=== PATIENT | male | born 1965 | race Caucasian/White ===

== ENCOUNTER → 2022-07-29 | Outpatient (CLI) | payer MEDICAID ==
--- NOTE | 2022-07-29 10:54 | XR ---
EXAMINATION TYPE: XR knee complete bilateral DATE OF EXAM: 07/29/2022 COMPARISON: None HISTORY: Pain TECHNIQUE: Bilateral knees 3 views each FINDINGS: Left knee: There is narrowing of the medial compartment joint space. There is some calcification with in the meniscus of the lateral compartment. Medial and lateral femoral condylar spurring and medial a nd lateral tibial plateau spurring is present. Posterior patellar spurring is present superiorly and inferiorly. Small joint effusion is not excluded. Right knee: Marked patellofemoral spurring is present. Small joint effusion is present. Medial and la teral tibial plateau and femoral condylar spurring is present. There is narrowing of medial compartme nt. Milder narrowing of the lateral compartment is present. IMPRESSION: 1. Moderate degenerative changes bilateral knees greater in the patellofemoral femoral space on the right and within the bilateral medial compartments.
== END | disposition home or self-care (01) ==
LOC: RADXRYALE 10:15
PROVIDERS: ATTEND Family Medicine
DX: M17.0 Bilateral primary osteoarthritis of knee (principal)

== ENCOUNTER → 2023-08-06 | Outpatient (CLI) | payer MEDICAID ==
--- NOTE | 2023-08-06 09:23 | XR ---
EXAMINATION TYPE: XR cervical spine comp DATE OF EXAM: 08/06/2023 COMPARISON: None HISTORY: Cervicalgia TECHNIQUE: 5 views cervical spine FINDINGS: Foraminal narrowing is present on the right C4-5. Milder foraminal narrowing is present C4- 5 and C5-6 on the left. Prevertebral space is normal. Posterior spinal lamellar line appears intact. There is degenerative di sc change throughout the cervical spine greatest at C5-6. IMPRESSION: 1. Degenerative disc changes and foraminal narrowing C4-5 foraminal narrowing on the left C5-6 disc space narrowing.
== END | disposition home or self-care (01) ==
LOC: RADXRYALE 08:33
PROVIDERS: ATTEND Family Medicine
DX: M47.812 Spondylosis without myelopathy or radiculopathy, cervical region (principal); M54.2 Cervicalgia; M43.6 Torticollis
CPT/HCPCS: 72050

== ENCOUNTER → 2024-02-20 | Outpatient (CLI) | payer MEDICAID ==
--- NOTE | 2024-02-20 08:29 | MR ---
EXAMINATION TYPE: MR cervical spine wo con DATE OF EXAM: 02/20/2024 COMPARISON: None HISTORY: Neck pain, swelling, stiffness x1 year TECHNIQUE: Multiplanar, multisequence images of the cervical spine were acquired without contrast. Findings: The craniovertebral junction relationships and prevertebral soft tissues are normal. The cervical vertebral segments are normal in height and alignment and there is no fracture or sublux ation. There is mild decreased signal intensity, circumferential disc bulge at the C3-4, C4-5, C5-6 and C6-7 levels. There is also mild disc space narrowing at the C4-5 and C5-6 levels. No cervical disc protru reynold or herniation. There is no cervical stenosis in the cervical cord is normal in size and signal intensity. There is multilevel bilateral neural foraminal encroachment as follows; mild at C3-C4 bilaterally, se dionte at C4-5 bilaterally, severe at C5-6 on the left and moderate at C5-6 on the right. IMPRESSION: 1. d to moderate multilevel degenerative disc disease from C2 through C7 without cervical disc hernia tion. 2. No cervical stenosis in the cervical cord is normal in size and signal intensity. 3. Multilevel bilateral neural foraminal stenosis severe at multiple levels as described above.
== END | disposition home or self-care (01) ==
LOC: RADMRIMAIN 07:37
PROVIDERS: ATTEND Family Medicine
DX: M50.30 Other cervical disc degeneration, unspecified cervical region (principal); M99.73 Connective tissue and disc stenosis of intervertebral foramina of lumbar region
CPT/HCPCS: 72141

== ENCOUNTER → 2024-05-02 | Outpatient (CLI) | payer MEDICAID | LOC: PNWHC3 07:50 | PROVIDERS: ATTEND Specialist | DX: M50.321 Other cervical disc degeneration at C4-C5 level (principal); M50.322 Other cervical disc degeneration at C5-C6 level; M50.323 Other cervical disc degeneration at C6-C7 level; M47.812 Spondylosis without myelopathy or radiculopathy, cervical region | CPT/HCPCS: 99211 ==

== ENCOUNTER → 2024-05-19 | Day surgery (SDC) | payer MEDICAID ==
[~2024-05-19] MED LIST: MIDAZOLAM 2 MG/2 ML VIAL ONE; ROPIVACAINE 5MG/ML 20ML VIAL ONE; fentaNYL (PF) 50 MCG/ML 2 ML AMP ONE
[2024-05-19 06:40] VITALS: TEMP 97.8
[2024-05-19] MEDS: IV FLUID CONTINUATION 1,000 ML IV ONE ×2 (06:46→08:07)
[2024-05-19] MEDS: LACTATED RINGERS 1,000 ML IV SCH (06:46)
[2024-05-19] MEDS: LIDOCAINE 1% (10MG/ML) FOR IV START INTRADERMA PRN (06:47)
--- NOTE | 2024-05-19 08:02 | P.PCN ---
Date of Procedure: 05/19/24 Procedure(s) Performed: PREOPERATIVE DIAGNOSIS: 1-Cervical Spondylosis with Facet Arthropathy.without myelopathy. 2-cervical degenerative disc disease POSTOPERATIVE DIAGNOSIS:1-cervical spondylosis with facet arthropathy without myelopathy. 2-cervical degenerative disc disease PROCEDURES: Diagnostic bilateral C4 , C5 , C6 medial branch blocks, with fluoroscopic guidance (fluoroscopy images available in radiology department ) ( to target the facet joint at bilateral C4- 5 , C5- 6 )#1st ANESTHESIA: moderate sedation with Versed 4 mg , and fentanyl 200 micrograms (sedation started at 07:08,ended at 07:56 ) EBL: Minimal PROCEDURE INDICATION: The patient with neck pain secondary to cervical arthropathy unresponsive to more conservative treatments. PROCEDURE DESCRIPTION / TECHNIQUE: The patient was seen and identified in the preoperative area. Risks, benefits, complications, and alternatives were discussed with the patient, the patient agreed to proceed with the procedure and signed the consent. IV was started. Vital signs remained stable throughout the procedure. Patient was taken to the OR and time out was completed. The patient was placed in the prone position on the procedure table. A pillow was placed under the patients chest to increase the cervical interlaminar space. The cervical area was prepped and draped in the usual sterile fashion. Critical pause was taken. Vital signs were closely monitored during the procedure. Conscious sedation was used during the procedure to decrease patients anxiety. Using cross-table lateral fluoroscopy, the centroid of the trapezoid of right C4 , C5 and C6, was identified, marked, and localized with 1% lidocaine 1 ml at each level for skin and Sub Q infiltrations . Subsequently, a 22 G 3 spinal needle was advanced guided by fluoroscopy to the centroid of the trapezoid of Right C4 , C5, C6 . Sixes tip position was confirmed at the centroid of the trapezoids of Right C4 , C5 ,C6 with anteroposterior fluoroscopy. Subsequently, 2 ml of preservative-free Ropivacaine 0.5% and half ml of the was injected after negative aspiration for blood and CSF. Sixes was then removed intact the same procedure was repeated at the Left C4 , C5 , and C6 levels. COMPLICATIONS: No acute complications. COMMENT(the left side was done in lateral position, because when we tried to do the left side block, she was very tense and I was not able to visualize C6 vertebra , or this reason patient turned to the lateral position ( left side up ) and the procedure done in lateral position under sterile technique. DISPOSITION / PLANS: The patient was placed in a supine position and transferred to the recovery area in a stable condition for observation and was discharged from the recovery room after meeting discharge criteria. Home discharge instructions given to the patient by the staff. The patient was reexamined prior to discharge. The patient will schedule a follow up in the clinic in 2-4 weeks.
[2024-05-19 08:10] VITALS: RESP 14
--- NOTE | 2024-05-19 08:24 | FL ---
EXAMINATION TYPE: FL guided pain mgmt statistic Intraoperative/procedural fluoroscopic services were provided. Total fluoroscopy time is 40.5 seconds with a total of 4 submitted images to PACS. Please s ee the operative/procedural note for further details. DAP: [id number] mGym2
[2024-05-19 08:30] VITALS: BP 120/84; PULSE 59
== END ==
LOC: ORPAIN 05:54
PROVIDERS: ATTEND Specialist
DX: M47.812 Spondylosis without myelopathy or radiculopathy, cervical region (principal); M50.122 Cervical disc disorder at C5-C6 level with radiculopathy; Z88.8 Allergy status to other drugs, medicaments and biological substances
CPT/HCPCS: 99152; 99153

== ENCOUNTER → 2024-06-06 | Outpatient (CLI) | payer MEDICAID ==
[2024-06-06 09:26] VITALS: BP 117/74; PULSE 63; RESP 16
--- NOTE | 2024-06-06 15:09 | P.PAINPG ---
PQRS Measure Charge Sheet Comment: A 59 yr old male with a history of severe and chronic neck pain secondary to cervical radiculopathy, spondylosis with facet arthropathy without myelopathy presents today for BL MBB C4-C5/ C5-C6 #1. Pt states he experienced 0 % pain relief s/p procedure. Pain level is provoked at 10/10 in intensity, constant, predominantly axial, localized in the cervical spine, sharp in character w occasional shooting towards the R side of neck. Pain is provoked by hyperextension. Pain is alleviated with physician guided stretches daily since Feb 2024, medications, repositioning and rest. Interventional pain procedures completed include BL MBB C4-C6 x1 Patient is currently on Flexeril, Mobic, ASA Patient denies any side effects of the medication(s), denies excessive drowsiness or sleepiness, denies suicidal ideation and reports that the current pain medication is helping to control the pain and improve activities of daily living. Patient denies any motor or sensory deficits. Patient denies any fever or night sweats, denies any change in the bowel movements or urination. Physical Examination: -Constitutional: Cooperative. Not in acute distress . - Neurologic: Cranial nerve II to XII intact. No focal neurological deficits. - Psychatric: Alert & oriented x 3. Matching mood & appropriate affect. Judgment and insight intact. - Musculoskeletal: Cervical spine: Muscle bulk/ tone/ strength in the bilateral upper extremities normal Vertebral body tenderness to palpation over Spurling test positive Distraction test positive Facet loading test positive TTP BL C4-C5, C5-C6 Thoracic spine Muscle bulk / tone/ strength in the bilateral paraspinal muscles normal Vertebral body tender to palpation over Facet loading test positive TTP Lumbar spine: Motor bulk/ tone/ strength lower extremities , thigh and legs : 5/5 Deep tendon reflexes : Normal Knee Jerk. Normal Ankle Jerk . Vertebral body tenderness to palpation over Lumbar Facet Loading Test positive Straight Leg Raise: positive at 30 degrees right side/ left side Gaenslen's Test positive Sacral spine : Severe tenderness over the Sacroiliac joint: right side / left side Range of motion: Flexion of the lumbar spine <60 degrees Range of motion: Extension of the lumbar spine <20 degrees Gaenslen's Test positive R / L Rob test: positive right side / left side Thigh Thrust Test positive R / L Sacral Thrust Test positive R/ L Imaging: MRI non contrast cervical spine from 02/20/24 reviewed Assessment and plan: Chronic neck pain secondary to cervical radiculopathy, spondylosis with facet arthropathy without myelopathy Recommendation of follow up w Dr Dhillon to explore additional treatment options. [place] 5/325mg #18 NR Use, side effects, adverse reactions, safe storage discussed. MAPS reviewed and it was appropriate. All patient questions answered I have spent less than 30 minutes on patient care today. Dr Kirkpatrick was available by phone for the evaluation of this patient. The time was used to review the medical records including relevant urine studies and Prescription history (MAPs), review of the available imaging, evaluation and examination of the patient, coordination of care with the medical staff and if applicable referring physicians, as well as creation of the medical record - Pain Location Right Shoulder Pharmacological Interventions: PRN Medication Home Medications: Ambulatory Orders Atorvastatin [Lipitor] 40 mg PO HS 05/17/24 Ticagrelor [Brilinta] 60 mg PO BID 05/17/24 lisinopriL [Zestril] 20 mg PO DAILY 05/17/24 HYDROcodone/APAP 5-325MG [[place] 5-325] 1 tab PO Q4HR PRN 3 Days #18 tab 06/06/24 Controlled Substance Measures - Controlled Substance Measures Is patient prescribed a controlled substance at discharge?: Yes When asked, does pt state using other controlled substances?: No If prescribed controlled substance>3 days was MAPS reviewed?: Prescribed <3 Days
== END ==
LOC: PNWHC3 09:08
PROVIDERS: ATTEND Specialist
DX: M47.812 Spondylosis without myelopathy or radiculopathy, cervical region
CPT/HCPCS: 99211

== ENCOUNTER → 2024-08-12 | Outpatient (CLI) | payer MEDICAID ==
--- NOTE | 2024-08-12 11:19 | CA ---
Stress Echo Report Juan Ly Age: 59 Gender: M : 1965 Exam Date: 08/12/2024 09:52 Exam Location: [facility] Ht (in): 69 Wt (lb): 255 Ordering Physician: Ronald Suresh MD Referring Physician: RONALD SURESH,, Correctional Medicine Physician: OLLIE Technologist Procedure CPT: Indication: I21.4 NON-ST ELEVATION (NSTEMI) MYOCARDIAL INFARCT ICD-9 Codes: Rhythm: Patient History: History of ASCAD and fatigue Cardiac Medications: Medications in past 24 hours: Contrast: Definity Stress Results Protocol: Hiren Total dose(mL): 2 Exercise Duration (min:sec): 9:[address] Depression (mm): Angina Score: Whitaker Score: METS: 10.9 Resting HR: 68 Resting BP: 124 / 77 Peak HR: 153 Peak BP: 159 / 83 Max Predicted HR: 163 94 % Max Predicted HR Target HR: 139 Double Product: 81103 Stress Summary: BP Response: Reason for Termination: Reached target heart rate or work-load, Maximal effort/unable to continue Cardiac Symptoms: No symptoms ECG Analysis Resting ECG: Normal sinus rhythm Stress ECG: no significant ST-T wave changes concerning for ischemia Arrhythmia: No significant arrhythmias Echo Analysis Resting Echo: Normal global and segmental systolic function at rest. No resting regional wall motion normality. Peak Echo Analysis: Normal augmentation of global and segmental systolic function with no stress-induced regional wall motion abnormality MEASUREMENTS (Male/Female) Normal Values CONCLUSIONS Overall normal treadmill echo stress test Good exercise tolerance achieving 10.9 METS Nonischemic ECG and echocardiographic response to treadmill exercise Normal hemodynamic response to treadmill axis Dr Ugo Ashford (Electronically Signed) Final Date: 12 August 2024 11:19
== END | disposition home or self-care (01) ==
LOC: RADNMMAIN 09:09
PROVIDERS: ATTEND Internal Medicine Cardiovascular Disease
DX: I21.4 Non-ST elevation (NSTEMI) myocardial infarction (principal); R06.09 Other forms of dyspnea
CPT/HCPCS: 93351; Q9957